=== PATIENT | male | born 1990 | race Caucasian/White ===

== ENCOUNTER 2017-03-24 13:25 | Emergency (ER) | payer OTHER ==
[2017-03-24 13:44] VITALS: RESP 18
[2017-03-24 14:26] LABS: URINE BACTERIA RARE (<OCC); URINE BILIRUBIN NEGATIVE (NEGATIVE); URINE BLOOD NEGATIVE (NEGATIVE); URINE CLARITY Clear (Clear); URINE COLOR Straw (YELLOW); URINE GLUCOSE (UA) NORMAL (Normal); URINE LEUKOCYTE ESTERASE NEG Leu/uL (Negative); URINE NITRATE NEGATIVE (NEGATIVE); URINE PROTEIN NEGATIVE (NEGATIVE); URINE UROBILINOGEN NORMAL mg/dL (0.2-1.0)
--- NOTE | 2017-03-24 16:06 | C.PDOC ---
History Of Present Illness 26 y/o healthy male c/o sharp, non-radiating left lower quadrant pain x 2 weeks that is worse with breathing and when walking. no n/v/d, no change in appetite, no cp or sob, no penile or scrotal pain, no penile discharge. pt has occasional dysuria. no fever or chills. last bm was yesterday, normal. Time Seen by Provider: 03/24/17 14:13 Chief Complaint (Nursing): Abdominal Pain History Per: Patient History/Exam Limitations: no limitations Onset/Duration Of Symptoms: Days (14) Current Symptoms Are (Timing): Still Present Severity: Moderate Location Of Pain/Discomfort: LLQ Radiation Of Pain To:: None Quality Of Discomfort: Sharp Associated Symptoms: Urinary Symptoms. denies: Chills, Nausea, Vomiting, Diarrhea, Loss Of Appetite, Back Pain, Chest Pain Exacerbating Factors: Deep Breaths, Other (walking) Last Bowel Movement: Yesterday Past Medical History Reviewed: Historical Data, Nursing Documentation, Vital Signs Vital Signs: Last Vital Signs Temp 97.7 F 03/24/17 19:51 Pulse 62 03/24/17 19:51 Resp 18 03/24/17 19:51 BP 120/70 03/24/17 19:51 Pulse Ox 100 03/24/17 19:51 - Medical History PMH: Back Problems Surgical History: No Surg Hx Family History: States: Unknown Family Hx - Social History Hx Tobacco Use: No Hx Alcohol Use: Yes (3x/week) Hx Substance Use: No - Immunization History Hx Tetanus Toxoid Vaccination: No Hx Influenza Vaccination: No Hx Pneumococcal Vaccination: No Review Of Systems Constitutional: Negative for: Fever, Chills Cardiovascular: Negative for: Chest Pain Respiratory: Negative for: Cough, Shortness of Breath Gastrointestinal: Positive for: Abdominal Pain (llq). Negative for: Nausea, Vomiting, Diarrhea Genitourinary: Positive for: Dysuria. Negative for: Frequency, Hematuria, Penile Discharge, Scrotal Pain, Penile Pain Musculoskeletal: Negative for: Neck Pain Skin: Negative for: Rash Neurological: Negative for: Weakness, Numbness Physical Exam - Physical Exam Appears: Non-toxic (alim), No Acute Distress Skin: Warm, Dry Head: Atraumatic, Normacephalic Neck: Normal ROM Chest: Symmetrical, No Deformity, No Tenderness Cardiovascular: Rhythm Regular, No Murmur Respiratory: Normal Breath Sounds, No Rales, No Rhonchi, No Stridor, No Wheezing Gastrointestinal/Abdominal: Soft, Tenderness (llq), No Distention, No Guarding, No Rebound, No Hernia Extremity: Normal ROM, No Tenderness, No Swelling Neurological/Psych: Oriented x3, Normal Speech, Normal Cognition ED Course And Treatment - Laboratory Results Result Diagrams: 03/24/17 17:09 03/24/17 17:09 O2 Sat by Pulse Oximetry: 96 Medical Decision Making Medical Decision Making: pt with unchanged pain after ibuprofen. no infection in urine., axr normal. will order labs and ct scan abdomen. 821 pm pt with no acute findings on ct scan; incidental finding on ct scan of right kidney stone in upper pole. pt advised of finding. pt with infiltration of left antecubital iv site; iv removed by peds RN and warm compress applied. pt advised to follow up with medical clinic; advised to increase fiber in diet. Disposition Counseled Patient/Family Regarding: Studies Performed, Diagnosis, Need For Followup, Rx Given - Disposition Referrals: [facility] [Outside] [facility] [Outside] Disposition: HOME/ ROUTINE Disposition Time: 20:25 Condition: STABLE Additional Instructions: Seguimiento en la clnica mdica; Si tiene problemas para concertar polina preston, llame a la conserjera. Anitra ms agua, aumente la cantidad de fibra en cantu dieta , ms frutas y verduras. [place] ibuprofeno para el dolor si es necesario. [place] colace (ablandador de heces) segn lo prescrito. Vuelva al ER para cualquier empeoramiento de los sntomas. Para el hinchamiento del brazo padmini, aplique compresas calientes. Prescriptions: Docusate Sodium [Colace] 100 mg PO BID #30 capsule Ibuprofen [Motrin] 600 mg PO TID #30 tab Instructions: Abdominal Pain (ED) - Clinical Impression Clinical Impression: Abdominal pain
--- NOTE | 2017-03-24 16:35 | RAD ---
HISTORY: llq pain eval for constipation COMPARISON: No prior. FINDINGS: BOWEL: No bowel obstruction. Mild retained feces. No hepatic or splenic enlargement. BONES: Normal. OTHER FINDINGS: None. IMPRESSION: No active disease.
[2017-03-24] MEDS ORDERED: Iohexol 240 (50 ml) PO STA (16:45)
[2017-03-24] MEDS ORDERED: Iohexol 240 (50 ml) ONE (17:08)
[2017-03-24 17:14] LABS: BASO % 0.2 % (0.0-2.0); EOS % 0.7 % (0.0-4.0); HEMOGLOBIN 14.9 g/dL (12.0-18.0); LYMPH # 1.2 K/uL (1.0-4.3); LYMPH % 27.8 % (20.0-40.0); MEAN CORPUSCULAR HEMOGLOBIN 27.7 pg (27.0-31.0); MEAN CORPUSCULAR HGB CONC 32.6 g/dL (33.0-37.0); MEAN PLATELET VOLUME 8.1 fL (7.2-11.7); MONO # 0.4 K/uL (0.0-0.8); MONO % 10.2 % (0.0-10.0); NEUT # 2.6 K/uL (1.8-7.0); NEUT % 61.1 % (50.0-75.0); RBC 5.4 Mil/uL (4.40-5.90); RED CELL DISTRIBUTION WIDTH 13.5 % (11.5-14.5); WHITE BLOOD COUNT 4.3 K/uL (4.8-10.8)
[2017-03-24 17:43] LABS: ALB/GLOB RATIO 1.2 (1.0-2.1); AST/SGOT 28 U/L (17-59); BLOOD UREA NITROGEN 11 mg/dL (9-20); GFR AFRICAN-AMERICAN > 60; GFR NON-AFRICAN AMERICAN > 60
[2017-03-24 17:44] LABS: ALT/SGPT 23 U/L (21-72); CALCIUM 9.2 mg/dl (8.6-10.4)
[2017-03-24] MEDS ORDERED: Iodixanol 320 MG/ML 100 ML BOTTLE IV ONE (17:54)
[2017-03-24 17:55] LABS: LIPASE 46 U/L (23-300)
[2017-03-24 19:52] VITALS: BP 120/70; PULSE 62; TEMP 97.7
[2017-03-24 20:24] VITALS: O2SAT 96
--- NOTE | 2017-03-25 08:28 | CT ---
PROCEDURE: CT Abdomen and Pelvis without intravenous contrast HISTORY: Abdominal pain COMPARISON: None. TECHNIQUE: Multiple contiguous axial images were performed through the abdomen and pelvis without intravenous contrast. Subsequently, sagittal and coronal reformatted images were obtained. Radiation dose: Total exam DLP = 209 mGy-cm. This CT exam was performed using one or more of the following dose reduction techniques: Automated exposure control, adjustment of the mA and/or kV according to patient size, and/or use of iterative reconstruction technique. FINDINGS: LOWER THORAX: Unremarkable. LIVER: Unremarkable. No gross lesion or ductal dilatation. GALLBLADDER AND BILE DUCTS: Unremarkable. PANCREAS: Limited visualization given lack of intravenous contrast. SPLEEN: Unremarkable. ADRENALS: Unremarkable. No mass. KIDNEYS AND URETERS: 3 millimeter calcification/ calculus noted in the midportion of the right kidney. Upper poles of the bilateral kidneys are not well seen due to beam hardening artifact. Question low-attenuation focus in the upper pole of the right kidney measuring 9 millimeters on series 3, image 48, too small to adequately characterize. Bilateral ureters are not clearly identified due to the relative paucity of intra-abdominal fat. VASCULATURE: Unremarkable. No aortic aneurysm. BOWEL: Unremarkable. No obstruction. No gross mural thickening. APPENDIX: Unremarkable. Normal appendix. PERITONEUM: Unremarkable. No free fluid. No free air. LYMPH NODES: Unremarkable. No enlarged lymph nodes. BLADDER: Prominently distended urinary bladder measuring up to 10.8 x 9.7 x 8.5 centimeters. REPRODUCTIVE: Unremarkable. BONES: No acute fracture. OTHER FINDINGS: None. IMPRESSION: 3 millimeter calculus/ calcification in the right kidney. No gross hydronephrosis of the right kidney. Images of the upper pole of left kidney are degraded by beam hardening artifact. No hydronephrosis in the left kidney. Ureters cannot be adequately identified due to paucity of intra-abdominal fat. These findings were preliminarily reported at 7:51 p.m. on 03/24/[address] Clementine Hitnon from [employer].
== END 2017-03-24 20:36 | disposition home or self-care (01) ==
LOC: C.ER 13:25
DX: R10.32 Left lower quadrant pain (principal)
CPT/HCPCS: 74000; 74176; 80053; 81001; 83690; 85025; 87086; 99285; Q9966

== ENCOUNTER 2017-09-21 13:47 | Emergency (ER) | payer SELFPAY ==
[2017-09-21 14:14] VITALS: RESP 18
[2017-09-21] MEDS ORDERED: Tetracaine 0.5% Ophth 2 ML BOTTLE OU ONE (14:59)
[2017-09-21] MEDS ORDERED: Fluorescein 1 mg Ophthalmic Strip OS STA (15:00)
[2017-09-21] MEDS ORDERED: Fluorescein 1 mg Ophthalmic Strip ONE (15:20)
[2017-09-21] MEDS ORDERED: Tetracaine 0.5% Ophth (OR ONLY) ONE (15:21)
--- NOTE | 2017-09-21 15:38 | C.PDOC ---
History Of Present Illness 27 yo male c/o eye redness intermittently for one month. Pt notes he feels a FB sensation for the last month but does not recall a specific incident when it started. (+) itching. Notes increased tearing, no purulent discharge. L>R . No blindness or diplopia. Has not been evaluated or tried any medication. Time Seen by Provider: 09/21/17 14:24 Chief Complaint (Nursing): Eye Problem History Per: Patient, Disability Coordinator (Kiel ZALDIVAR ) History/Exam Limitations: no limitations Current Symptoms Are (Timing): Still Present Injury To Eye?: No Associated Symptoms: FB Sensation, Itching Past Medical History Vital Signs: Last Vital Signs Temp 99 F 09/21/17 14:11 Pulse 85 09/21/17 14:11 Resp 18 09/21/17 14:11 BP 129/75 09/21/17 14:11 Pulse Ox 97 09/21/17 15:59 - Medical History PMH: Back Problems Family History: States: Unknown Family Hx - Social History Hx Tobacco Use: No Hx Alcohol Use: Yes (3x/week) Hx Substance Use: No - Immunization History Hx Tetanus Toxoid Vaccination: No Hx Influenza Vaccination: No Hx Pneumococcal Vaccination: No Review Of Systems Except As Marked, All Systems Reviewed And Found Negative. Eyes: Positive for: Pain, Redness Physical Exam - Physical Exam Appears: Well, Non-toxic, No Acute Distress Skin: Normal Color, Warm, Dry Head: Atraumatic, Normacephalic Eye(s): bilateral: PERRL, EOMI, Other ((+) b/l moderate injection (+) very mild pterygium) Ear(s): Bilateral: Normal Nose: Normal Oral Mucosa: Moist Throat: Normal, No Erythema, No Exudate Neck: Normal, Normal ROM, Supple Chest: Symmetrical Cardiovascular: Rhythm Regular Respiratory: Normal Breath Sounds Back: Normal Inspection Extremity: Normal ROM Neurological/Psych: Oriented x3, Normal Speech Gait: Steady ED Course And Treatment O2 Sat by Pulse Oximetry: 97 Progress Note: No fluorescein uptake. Discussed with pt strict follow up with eye doctor or return to eR if symtpoms persist or worsen. Disposition - Disposition Referrals: Wayne Thorpe MD [Staff Provider] - [facility] at [facility] [Outside] Disposition: HOME/ ROUTINE Disposition Time: 15:37 Condition: STABLE Additional Instructions: Vaya a cantu mdico o la clnica en 2-5 lópez sin falta, para mas evaluacin. [place] los medicamentos tino indicado. Volver a la zina de emergencia en cualquier momento si los sntomas persisten o empeoran. Prescriptions: Tobramycin 0.3% [Tobramycin 5 Ml] 1 drop OP Q4 #1 bottle Instructions: Conjunctivitis (ED) Forms: [facility] (Welsh) Print Language: SYRIAN - Clinical Impression Clinical Impression: Conjunctivitis
[2017-09-21 16:18] VITALS: BP 119/84; PULSE 81; TEMP 98.8; O2SAT 95
== END 2017-09-21 16:19 | disposition home or self-care (01) ==
LOC: C.ER 13:47
DX: H10.9 Unspecified conjunctivitis (principal)

== ENCOUNTER 2018-02-08 11:04 | Emergency (ER) | payer OTHER ==
[2018-02-08 11:09] VITALS: BP 138/80; PULSE 67; RESP 18; TEMP 98.1; O2SAT 97
--- NOTE | 2018-02-08 11:42 | C.PDOC ---
Time Seen by Provider: 02/08/18 11:22 Chief Complaint (Nursing): Eye Problem History Per: Patient Onset/Duration Of Symptoms: Days Current Symptoms Are (Timing): Still Present Injury To Eye?: No Severity: Moderate Associated Symptoms: FB Sensation, Itching Additional History Per: Prior Records Past Medical History Reviewed: Historical Data, Nursing Documentation, Vital Signs Vital Signs: Last Vital Signs Temp 98.1 F 02/08/18 11:07 Pulse 67 02/08/18 11:07 Resp 18 02/08/18 11:07 BP 138/80 02/08/18 11:07 Pulse Ox 97 02/08/18 11:07 - Medical History PMH: Back Problems Family History: States: Unknown Family Hx - Social History Hx Tobacco Use: No Hx Alcohol Use: Yes (3x/week) Hx Substance Use: No - Immunization History Hx Tetanus Toxoid Vaccination: No Hx Influenza Vaccination: No Hx Pneumococcal Vaccination: No Review Of Systems Except As Marked, All Systems Reviewed And Found Negative. Constitutional: Negative for: Fever, Weakness Eyes: Positive for: Conjunctivae Inflammation, Redness. Negative for: Vision Change, Eyelid Inflammation Cardiovascular: Negative for: Chest Pain Respiratory: Negative for: Shortness of Breath Gastrointestinal: Negative for: Nausea, Vomiting, Abdominal Pain Musculoskeletal: Negative for: Neck Pain Skin: Negative for: Rash Neurological: Negative for: Weakness, Numbness Physical Exam - Physical Exam Appears: Non-toxic, No Acute Distress Skin: Normal Color, Warm, Dry, No Rash Head: Atraumatic, Normacephalic Eye(s): bilateral: PERRL, EOMI, Other (conjunctival injection) Neck: Normal ROM, Supple Lymphatic: No Adenopathy Neurological/Psych: Oriented x3, Normal Speech, Normal Cognition, Normal Cranial Nerves, Normal Motor, Normal Sensation ED Course And Treatment O2 Sat by Pulse Oximetry: 97 Pulse Ox Interpretation: Normal Disposition Counseled Patient/Family Regarding: Diagnosis, Need For Followup, Rx Given - Disposition Referrals: Wayne Thorpe MD [Staff Provider] - Disposition: HOME/ ROUTINE Disposition Time: 11:43 Condition: STABLE Additional Instructions: Follow up with an [employer] Operator for further evaluation and treatment. Return to the ER if you develop change in vision, worsening of symptoms or if you have any other concerns. Prescriptions: Ketotifen Fumarate 1 drop OP BID PRN #1 linn PRN Reason: Itching / Pruritus Instructions: Conjunctivitis (Noninfectious [place]key[place]) (DC) Print Language: QATARI - Clinical Impression Clinical Impression: Allergic conjunctivitis
== END 2018-02-08 11:58 | disposition home or self-care (01) ==
LOC: C.ER 11:04
DX: H10.10 Acute atopic conjunctivitis, unspecified eye (principal)

== ENCOUNTER 2019-01-09 17:39 | Emergency (ER) | payer OTHER ==
[2019-01-09 17:52] VITALS: BP 134/77; PULSE 79; RESP 17; TEMP 99.3; O2SAT 100
[2019-01-09] MEDS ORDERED: Naproxen 550 mg Tab PO STA (18:25)
[2019-01-09] MEDS ORDERED: Naproxen 550 mg Tab PO ONE (18:34)
--- NOTE | 2019-01-09 19:34 | C.PDOC ---
History Of Present Illness 28 y/o male presents to the ER complaining of posterior rib pain which has been present for the past 2 weeks. Patient states that the pain became worse yesterday night. Patient describes the pain as sharp. He rates the pain 7/10. He notes that he did not take any oral medications for the pain. Denies having trauma, strenuous exercise, CP,SOB, weakness, headache, dizziness. Chief Complaint (Nursing): Back Pain History Per: Patient History/Exam Limitations: no limitations Onset/Duration Of Symptoms: Days Current Symptoms Are (Timing): Still Present Severity: Moderate Past Medical History Reviewed: Historical Data, Nursing Documentation, Vital Signs Vital Signs: Last Vital Signs Temp 99.3 F 01/09/19 17:50 Pulse 79 01/09/19 17:50 Resp 17 01/09/19 17:50 BP 134/77 01/09/19 17:50 Pulse Ox 100 01/09/19 17:50 - Medical History PMH: Back Problems Surgical History: No Surg Hx Family History: States: No Known Family Hx - Social History Hx Tobacco Use: No Hx Alcohol Use: Yes Hx Substance Use: No - Immunization History Hx Tetanus Toxoid Vaccination: No Hx Influenza Vaccination: No Hx Pneumococcal Vaccination: No Review Of Systems Cardiovascular: Negative for: Chest Pain Respiratory: Negative for: Shortness of Breath Musculoskeletal: Positive for: Other (rib pain) Neurological: Negative for: Weakness, Numbness, Headache, Dizziness Physical Exam - Physical Exam Appears: Non-toxic, No Acute Distress Skin: Normal Color, Warm, Dry Head: Atraumatic, Normacephalic Eye(s): bilateral: Normal Inspection Nose: Normal Oral Mucosa: Moist Neck: Supple Chest: Symmetrical, Other (pinpoint tenderness to lower posterior rib cage, no ecchymosis, no edema, no erythema) Cardiovascular: Rhythm Regular Respiratory: Normal Breath Sounds, No Rales, No Rhonchi, No Wheezing Neurological/Psych: Oriented x3, Normal Speech, Normal Motor, Normal Sensation ED Course And Treatment O2 Sat by Pulse Oximetry: 100 (RA) Pulse Ox Interpretation: Normal - Other Rad rib and chest X-Ray: Viewed By Me, Read By Radiologist Interpretation: Accession No. : [id number]. Patient Name / ID : CHRISTOPHER HADLEY / [id number]. Exam Date : 01/09/2019 19:07:16 ( Approved ). Study Comment : Sex / Age : M / 28Y. Creator : Belle Moore. Dictator : Belle Moore. Window Trimmer : Shake Backboard Notcher : Belle Moore. Approver2 : Report Date : 01/10/2019 08:13:18. My Comment : . Date of service: 01/09/2019. PROCEDURE: Radiographs of the Chest and Right Ribs. HISTORY: rib pain. COMPARISON: None available. TECHNIQUE: Frontal radiograph of the chest and multiple oblique radiographs of the right ribs were obtained. 4 views obtained. FINDINGS: RIGHT RIBS: No fracture or focal lesion visualized. LUNGS: Clear. PLEURA: No pneumothorax or pleural fluid. CARDIOVASCULAR: Normal cardiac size. No pulmonary vascular congestion. No aortic atherosclerotic calcification present. OTHER FINDINGS: None. IMPRESSION: Unremarkable radiographs of the chest and right ribs. No right rib fracture. Medical Decision Making Medical Decision Making: plan: xray -negative lidoderm patch placed; naproxen po given patient notes improvement patient notified of results and is stable for discharge Disposition Counseled Patient/Family Regarding: Studies Performed, Diagnosis, Need For Followup, Rx Given - Disposition Referrals: [facility] [Outside] Disposition: HOME/ ROUTINE Disposition Time: 19:34 Condition: STABLE Additional Instructions: Continue Naproxen twice a day Use lioderm patch as needed for pain Follow up with PMD in 1-2 days Return to ED if symptoms worsen Prescriptions: Lidocaine 5% [Lidoderm] 1 ea TD PRN PRN #30 patch PRN Reason: Pain, Moderate (4-7) Naproxen [Naprosyn] 500 mg PO BID #30 tablet Instructions: Costochondritis (DC) Forms: [employer] (Tajik) Print Language: CZECH - Clinical Impression Clinical Impression: Rib pain, Costochondritis - PA / LIGHTING TECHNICIAN / Resident Statement MD/DO has reviewed & agrees with the documentation as recorded. - Scribe Statement The provider has reviewed the documentation as recorded by the Scribe Josh Álvarez Provider Attestation All medical record entries made by the Eduaribe were at my direction and personally dictated by me. I have reviewed the chart and agree that the record accurately reflects my personal performance of the history, physical exam, medical decision making, and the department course for this patient. I have also personally directed, reviewed, and agree with the discharge instructions and disposition.
[2019-01-09] MEDS ORDERED: Lidocaine 5% Patch TD ONE (19:44)
--- NOTE | 2019-01-10 08:17 | RAD ---
Date of service: 01/09/2019 PROCEDURE: Radiographs of the Chest and Right Ribs. HISTORY: rib pain COMPARISON: None available. TECHNIQUE: Frontal radiograph of the chest and multiple oblique radiographs of the right ribs were obtained. 4 views obtained. FINDINGS: RIGHT RIBS: No fracture or focal lesion visualized. LUNGS: Clear. PLEURA: No pneumothorax or pleural fluid. CARDIOVASCULAR: Normal cardiac size. No pulmonary vascular congestion. No aortic atherosclerotic calcification present OTHER FINDINGS: None. IMPRESSION: Unremarkable radiographs of the chest and right ribs. No right rib fracture.
[2019-01-10] MEDS ORDERED: Lidocaine 5% Patch TD SCH (10:00)
== END 2019-01-09 19:47 | disposition home or self-care (01) ==
LOC: C.ER 17:39
DX: M94.0 Chondrocostal junction syndrome [Tietze] (principal)